=== PATIENT | male | born 1945 | race Caucasian/White ===

== ENCOUNTER 2020-10-19 04:45 | Day surgery (SDC) | payer OTHER, MEDICARE ==
[2020-10-18 08:52] VITALS: BMI 30.5
[2020-10-19 08:19] VITALS: TEMP 97.8
[2020-10-19 08:59] VITALS: BP 154/79; PULSE 59
== END 2020-10-19 09:09 | disposition home or self-care (01) ==
LOC: JASU-ENDO 04:45
PROVIDERS: ATTEND Internal Medicine Gastroenterology
PROC: 0DJD8ZZ Inspection of Lower Intestinal Tract, Via Natural or Artificial Opening Endoscopic (ICD-10-PCS; principal; 2020-10-19 07:54)
DX: Z12.11 Encounter for screening for malignant neoplasm of colon (principal)

== ENCOUNTER 2021-02-21 05:10 | Inpatient (IN) | payer OTHER, MEDICARE ==
[2021-02-21 06:55] LABS: HEMATOCRIT 29.7 % (35.4-49); HEMOGLOBIN 10.4 GM/dL (11.7-16.9); MCH 31.2 pg (25.7-33.7); PLATELET COUNT 354 10^3/uL (134-434); RBC 3.34 M/mm3 (4.00-5.60); RDW 13.1 % (11.9-15.9)
[2021-02-21 07:03] LABS: CHLORIDE 107 mmol/L (98-107); SODIUM 140 mmol/L (136-145)
[2021-02-21 07:04] LABS: CALCIUM 8.4 mg/dL (8.5-10.1)
[2021-02-21 07:05] LABS: ALBUMIN 3.4 g/dl (3.4-5.0); ANION GAP 7 MMOL/L (8-16); BLOOD UREA NITROGEN 54.6 mg/dL (7-18); CO2 26 mmol/L (21-32); GLUCOSE,RANDOM 105 mg/dL (74-106)
[2021-02-21 07:08] LABS: CREATININE 4.4 mg/dL (0.55-1.3); SGOT/AST 17 U/L (15-37); SGPT/ALT 19 U/L (13-61)
[2021-02-21 07:09] LABS: INR 1.06 (0.83-1.09)
[2021-02-21 07:10] LABS: BILIRUBIN,TOTAL 0.6 mg/dL (0.2-1); TOT PROT 6.8 g/dl (6.4-8.2)
[2021-02-21 07:11] LABS: ALK PHOS 41 U/L (45-117)
[2021-02-21] MEDS ORDERED: METOPROLOL TARTRATE 50 MG TABLET (FP) PO ONE (08:29)
[2021-02-21] MEDS ORDERED: METOPROLOL TARTRATE 50 MG TABLET (FP) ONE (09:07)
[2021-02-21 09:20] LABS: N-TERMINAL BNP 20846.7 pg/ml (5-125)
[2021-02-21] MEDS ORDERED: NIFEdipine 10 MG CAPSULE (FP) PO ONE (10:07)
[2021-02-21] MEDS ORDERED: FUROSEMIDE 40 MG/4 ML INJECTABLE VIAL IVPUSH ONE (10:11)
[2021-02-21] MEDS ORDERED: ASPIRIN 81 MG CHEWABLE TABLETS PO ONE (10:11)
[2021-02-21] MEDS ORDERED: ASPIRIN 81 MG CHEWABLE TABLETS ONE (10:42)
[2021-02-21] MEDS ORDERED: NIFEdipine E.R. 30 MG TABLET ONE (10:43)
[2021-02-21] MEDS ORDERED: FUROSEMIDE 40 MG/4 ML INJECTABLE VIAL ONE (10:43)
[2021-02-21] MEDS ORDERED: NICARDIPINE 25 MG in DEXTROSE 5%-WATER - 240 ML IVPB SCH ×3 (13:00→14:36)
[2021-02-21] MEDS: HEPARIN NA (PORCINE) 5,000 UNITS/ML 1ML VIAL SQ SCH ×2 (15:42→21:20)
[2021-02-21 16:23] LABS: EPI CELLS 0 /uL (0-25.1); HYALINE CASTS 1 /uL (0-3.1); URINE APPEARANCE CLEAR; URINE BACTERIA 0 /uL (0-1359); URINE BILIRUBIN NEGATIVE (NEGATIVE); URINE COLOR YELLOW; URINE GLUCOSE (UA) NEGATIVE (NEGATIVE); URINE KETONE NEGATIVE (NEGATIVE); URINE LEUK ESTERASE NEGATIVE (NEGATIVE); URINE NITRITE NEGATIVE (NEGATIVE); URINE PROTEIN 2+ (NEGATIVE); URINE RBC 3 /uL (0-23.9); URINE UROBILINOGEN 0.2 mg/dL (0.2-1.0); URINE WBC 1 /uL (0-25.8)
[2021-02-21 18:17] VITALS: BMI 29.2
[2021-02-21] MEDS: CHLORHEXIDINE GLUCONATE 4% CLEANSER FOR DECOLONIZATION TP SCH (21:20)
[2021-02-21] MEDS: MUPIROCIN 2% TOPICAL OINTMENT FOR DECOLONIZATION NS SCH (21:20)
[2021-02-22] MEDS: HEPARIN NA (PORCINE) 5,000 UNITS/ML 1ML VIAL SQ SCH ×3 (06:33→21:39)
[2021-02-22 07:51] LABS: BASO % 1.2 % (0-2.0); HEMATOCRIT 31.3 % (35.4-49); HEMOGLOBIN 11.1 GM/dL (11.7-16.9); LYMPH % 10.7 % (8-40); MCH 31.3 pg (25.7-33.7); MCHC 35.4 g/dl (32.0-35.9); MEAN CELL VOLUME 88.5 fl (80-96); MEAN PLT VOLUME 8.8 fl (7.5-11.1); NEUT % 76.1 % (42.8-82.8); PLATELET COUNT 365 10^3/uL (134-434); RBC 3.53 M/mm3 (4.00-5.60); RDW 13.2 % (11.9-15.9); WHITE BLOOD COUNT 7.1 K/mm3 (4.0-10.0)
[2021-02-22 08:10] LABS: BLOOD UREA NITROGEN 52.3 mg/dL (7-18); CALCIUM 8.6 mg/dL (8.5-10.1)
[2021-02-22 08:11] LABS: ALBUMIN 3.3 g/dl (3.4-5.0); MAGNESIUM 2.4 mg/dL (1.8-2.4)
[2021-02-22 08:14] LABS: CREATININE 4.2 mg/dL (0.55-1.3)
[2021-02-22 08:15] LABS: BILIRUBIN,TOTAL 0.5 mg/dL (0.2-1); TOT PROT 6.5 g/dl (6.4-8.2)
[2021-02-22] MEDS: TAMSULOSIN HCL 0.4 MG CAP PO SCH (08:22)
[2021-02-22] MEDS ORDERED: PT OWN MED DRAWER 7, Y5N ONE (09:11)
[2021-02-22] MEDS: FENOFIBRIC ACID 45 MG CAP PO SCH (09:16)
[2021-02-22] MEDS: ASPIRIN COATED 81 MG TABLET.EC PO SCH (09:16)
[2021-02-22] MEDS ORDERED: amLODIPine BESYLATE 5 MG TABLET (FP) PO SCH (10:00)
[2021-02-22] MEDS ORDERED: ENOXAPARIN NA (PORCINE) 40 MG/0.4 ML DISP.SYRIN SQ SCH (10:00)
[2021-02-22] MEDS ORDERED: FUROSEMIDE 40 MG/4 ML INJECTABLE VIAL IVPUSH ONE (10:42)
[2021-02-22] MEDS: NIFEdipine E.R 60 MG TABLET PO SCH (11:12)
[2021-02-22] MEDS: POTASSIUM CHLORIDE TABS 20 MEQ TABLET.ER (FP) PO ONE ×2 (11:12→11:26)
[2021-02-22] MEDS: MUPIROCIN 2% TOPICAL OINTMENT FOR DECOLONIZATION NS SCH ×2 (11:13→21:38)
[2021-02-23] MEDS: CHLORHEXIDINE GLUCONATE 4% CLEANSER FOR DECOLONIZATION TP SCH (06:16)
[2021-02-23] MEDS: HEPARIN NA (PORCINE) 5,000 UNITS/ML 1ML VIAL SQ SCH ×3 (06:19→21:51)
[2021-02-23 08:18] LABS: BASO % 0.8 % (0-2.0); HEMATOCRIT 31.8 % (35.4-49); LYMPH % 12.5 % (8-40); MCH 30.8 pg (25.7-33.7); MCHC 34.6 g/dl (32.0-35.9); MEAN CELL VOLUME 88.8 fl (80-96); MEAN PLT VOLUME 8.4 fl (7.5-11.1); MONO % 9.3 % (3.8-10.2); NEUT % 73.4 % (42.8-82.8); PLATELET COUNT 389 10^3/uL (134-434); RBC 3.58 M/mm3 (4.00-5.60); RDW 13.3 % (11.9-15.9); WHITE BLOOD COUNT 7.9 K/mm3 (4.0-10.0)
[2021-02-23 08:42] LABS: CALCIUM 8.4 mg/dL (8.5-10.1)
[2021-02-23 08:43] LABS: ALBUMIN 3.3 g/dl (3.4-5.0); BLOOD UREA NITROGEN 57.1 mg/dL (7-18); MAGNESIUM 2.4 mg/dL (1.8-2.4)
[2021-02-23 08:46] LABS: CREATININE 4.9 mg/dL (0.55-1.3); PHOSPHOROUS 4.5 mg/dL (2.5-4.9)
[2021-02-23] MEDS: TAMSULOSIN HCL 0.4 MG CAP PO SCH (08:47)
[2021-02-23 08:48] LABS: BILIRUBIN,TOTAL 0.4 mg/dL (0.2-1); TOT PROT 6.8 g/dl (6.4-8.2)
[2021-02-23 09:11] LABS: RETICULOCYTES 1.25 % (0.5-1.5)
[2021-02-23] MEDS ORDERED: PT OWN MED DRAWER 7, Y5N ONE (09:34)
[2021-02-23] MEDS: MUPIROCIN 2% TOPICAL OINTMENT FOR DECOLONIZATION NS SCH (09:57)
[2021-02-23] MEDS: ASPIRIN COATED 81 MG TABLET.EC PO SCH (09:58)
[2021-02-23] MEDS: NIFEdipine E.R 60 MG TABLET PO SCH (09:58)
[2021-02-23] MEDS: FENOFIBRIC ACID 45 MG CAP PO SCH (09:59)
[2021-02-23] MEDS ORDERED: NIFEdipine E.R. 30 MG TABLET PO ONE (15:05)
[2021-02-24] MEDS: HEPARIN NA (PORCINE) 5,000 UNITS/ML 1ML VIAL SQ SCH ×2 (06:03→14:06)
[2021-02-24] MEDS: MUPIROCIN 2% TOPICAL OINTMENT FOR DECOLONIZATION NS SCH ×2 (06:03→09:39)
[2021-02-24] MEDS: CHLORHEXIDINE GLUCONATE 4% CLEANSER FOR DECOLONIZATION TP SCH (06:04)
[2021-02-24 07:28] LABS: HEMATOCRIT 32.1 % (35.4-49); HEMOGLOBIN 11.1 GM/dL (11.7-16.9); MCH 30.5 pg (25.7-33.7); MCHC 34.6 g/dl (32.0-35.9); MEAN CELL VOLUME 88.3 fl (80-96); MEAN PLT VOLUME 8.5 fl (7.5-11.1); PLATELET COUNT 386 10^3/uL (134-434); RBC 3.63 M/mm3 (4.00-5.60); RDW 13.4 % (11.9-15.9); WHITE BLOOD COUNT 7.8 K/mm3 (4.0-10.0)
[2021-02-24 07:49] LABS: CALCIUM 8.5 mg/dL (8.5-10.1); MAGNESIUM 2.5 mg/dL (1.8-2.4)
[2021-02-24 07:51] LABS: ALBUMIN 3.4 g/dl (3.4-5.0); BLOOD UREA NITROGEN 57.3 mg/dL (7-18); CREATININE 4.6 mg/dL (0.55-1.3)
[2021-02-24 07:52] LABS: TOT PROT 6.7 g/dl (6.4-8.2)
[2021-02-24 07:55] LABS: PHOSPHOROUS 4.7 mg/dL (2.5-4.9)
[2021-02-24 07:56] LABS: BILIRUBIN,TOTAL 0.3 mg/dL (0.2-1)
[2021-02-24] MEDS ORDERED: PT OWN MED DRAWER 7, Y5N ONE (09:28)
[2021-02-24] MEDS: TAMSULOSIN HCL 0.4 MG CAP PO SCH (09:39)
[2021-02-24] MEDS: ASPIRIN COATED 81 MG TABLET.EC PO SCH (09:40)
[2021-02-24] MEDS: FENOFIBRIC ACID 45 MG CAP PO SCH (09:40)
[2021-02-24] MEDS ORDERED: NIFEdipine E.R. 90 MG TABLET PO SCH (10:00)
[2021-02-24 11:51] VITALS: BP 150/90; PULSE 78; TEMP 97.5
== END 2021-02-24 15:00 | disposition home or self-care (01) | DRG 291 ==
LOC: JER 05:10 → JERBED 11:20 → JICU 14:05 → J4W 02-22 17:05
PROVIDERS: ADMIT Internal Medicine; ATTEND Internal Medicine
DX: I13.0 Hypertensive heart and chronic kidney disease with heart failure and stage 1 through stage 4 chronic kidney disease, or unspecified chronic kidney disease (principal); I50.33 Acute on chronic diastolic (congestive) heart failure; N17.9 Acute kidney failure, unspecified; C64.9 Malignant neoplasm of unspecified kidney, except renal pelvis; I24.8 Other forms of acute ischemic heart disease; I16.1 Hypertensive emergency; D64.9 Anemia, unspecified; E78.5 Hyperlipidemia, unspecified; I16.0 Hypertensive urgency; N18.30 Chronic kidney disease, stage 3 unspecified; R59.1 Generalized enlarged lymph nodes; N40.0 Benign prostatic hyperplasia without lower urinary tract symptoms
CPT/HCPCS: 36415; 71045-TC-FY; 71250-TC; 76775-TC; 76856-TC; 80053; 80061; 81003; 82550; 82553; 82570; 82607; 82728; 82747; 83010; 83036; 83540; 83550; 83615; 83735; 83880; 84100; 84156; 84443; 84484; 85014; 85025; 85027; 85045; 85610; 93005; 93010; 93306-TC; 97116-GP; 97161-GP; 99285-25; C9803; J1644; U0003; U0005

== ENCOUNTER 2024-02-18 04:15 | Emergency (ER) | payer OTHER, MEDICARE ==
[2024-02-18 04:27] VITALS: BMI 27.6
[2024-02-18 05:54] LABS: BASO % 1.2 % (0-2.0); EOS % 2.2 % (0-4.5); HEMATOCRIT 28.8 % (35.4-49); HEMOGLOBIN 9.5 GM/dL (11.7-16.9); LYMPH % 4.8 % (8-40); MEAN PLT VOLUME 8.7 fl (7.5-11.1); MONO % 8.8 % (3.8-10.2); PLATELET COUNT 452 10^3/uL (134-434); RBC 3.17 M/mm3 (4.00-5.60); RDW 15.1 % (11.9-15.9); WHITE BLOOD COUNT 14.7 K/mm3 (4.0-10.0)
[2024-02-18 06:01] LABS: INR 1.1 (0.83-1.09); PROTHROMBIN TIME (PATIENT) 12.4 SEC (9.7-13.0)
[2024-02-18 06:04] LABS: ACTIVATED PTT 25.2 SECONDS (25.2-36.5); EPI CELLS 1 /uL (0-25.1); HYALINE CASTS 0 /uL (0-3.1); PH,URINE 5.5 (5.0-8.0); URINE APPEARANCE CLEAR; URINE BACTERIA 1 /uL (0-1359); URINE BILIRUBIN NEGATIVE (NEGATIVE); URINE COLOR YELLOW; URINE GLUCOSE (UA) NEGATIVE (NEGATIVE); URINE KETONE NEGATIVE (NEGATIVE); URINE LEUK ESTERASE NEGATIVE (NEGATIVE); URINE NITRITE NEGATIVE (NEGATIVE); URINE PROTEIN 1+ (NEGATIVE); URINE RBC 11 /uL (0-23.9); URINE UROBILINOGEN 0.2 mg/dL (0.2-1.0); URINE WBC 3 /uL (0-25.8)
[2024-02-18 06:11] LABS: POTASSIUM 4.6 mmol/L (3.5-5.1)
[2024-02-18 06:13] LABS: BLOOD UREA NITROGEN 82.1 mg/dL (7-18); CALCIUM 8.6 mg/dL (8.5-10.1)
[2024-02-18 06:18] LABS: BILIRUBIN,TOTAL 0.8 mg/dL (0.2-1); TOT PROT 6.3 g/dl (6.4-8.2)
[2024-02-18 06:21] LABS: N-TERMINAL BNP 23486.7 pg/ml (5-450)
[2024-02-18] MEDS ORDERED: FUROSEMIDE 40 MG/4 ML INJECTABLE VIAL ONE (07:22)
[2024-02-18] MEDS: FUROSEMIDE 40 MG/4 ML INJECTABLE VIAL IVPUSH ONE (07:29)
[2024-02-18] MEDS ORDERED: ASPIRIN 325 MG ENTERIC COATED TABLET (FP) ONE (11:26)
[2024-02-18] MEDS ORDERED: ASPIRIN COATED 81 MG TABLET.EC ONE (11:27)
[2024-02-18] MEDS: ASPIRIN COATED 81 MG TABLET.EC PO ONE (11:29)
[2024-02-18] MEDS ORDERED: NIFEdipine E.R 60 MG TABLET PO ONE (13:16)
[2024-02-18] MEDS: NIFEdipine E.R 60 MG TABLET PO ONE (13:19)
[2024-02-18] MEDS ORDERED: LABETALOL HCL 200 MG TABLET (FP) ONE (16:58)
[2024-02-18] MEDS: LABETALOL HCL 200 MG TABLET (FP) PO ONE (17:03)
[2024-02-18 17:56] VITALS: PULSE 65; TEMP 98.5
[2024-02-18 19:02] VITALS: BP 149/76; RESP 20
== END 2024-02-18 19:44 | disposition short-term general hospital (02) ==
LOC: JER 04:15
PROC: 3E033GC Introduction of Other Therapeutic Substance into Peripheral Vein, Percutaneous Approach (ICD-10-PCS; principal; 2024-02-18)
DX: R06.02 Shortness of breath (principal); J90 Pleural effusion, not elsewhere classified; R07.89 Other chest pain; Z20.822 Contact with and (suspected) exposure to COVID-19
CPT/HCPCS: 0241U-QW; 36415; 71045-TC-FY; 80053; 81003; 83880; 84484; 85025; 85610; 85730; 87086; 93005; 93010; 99285-25